=== PATIENT | female | born 1950 | race Caucasian/White ===

== ENCOUNTER 2021-11-11 23:31 | Emergency (ER) | payer MEDICARE, OTHER ==
[2021-11-12] MEDS ORDERED: Ketorolac 30 MG/ML SDV IVPUSH ONE (00:14)
[2021-11-12] MEDS ORDERED: Sodium Chloride 0.9% 10 ML Syringe FLUSH PRN (00:14)
[2021-11-12] MEDS ORDERED: traMADol 50 MG Tab PO ONE (01:12)
== END 2021-11-12 01:35 | disposition home or self-care (01) ==
LOC: KA.ED 23:31
DX: S32.591A Other specified fracture of right pubis, initial encounter for closed fracture (principal); M47.816 Spondylosis without myelopathy or radiculopathy, lumbar region; Z91.048 Other nonmedicinal substance allergy status; Z88.2 Allergy status to sulfonamides; Z91.013 Allergy to seafood; W18.30XA Fall on same level, unspecified, initial encounter
CPT/HCPCS: 72100; 72131; 96374; 96375; 99284; 99284-25; A9270-GY; J1885; J3360